=== PATIENT | female | born 1965 | race Caucasian/White ===

== ENCOUNTER 2017-01-09 18:37 | Emergency (ER) | payer BC ==
[~2017-01-09] VITALS: Ht 160 cm; Wt 81.8 kg
[2017-01-09 18:37] VITALS: Ht 160 cm; Wt 81.8 kg
--- OUTSIDE RECORDS SUMMARY | 2017-01-09 18:50 | XMS REPORT | Continuity of Care Document ---
Author Author Organization Address Unknown Phone Unavailable Allergies Active Description Code Type Severity Reaction Onset Reported/Identified Relationship to Patient Clinical Status Yes MILK MILK Drug Allergy Mild GAS, DIARRHEA 07/05/2012 Yes Penicillins Penicillins Drug Allergy Mild RASH 07/12/2012 Medications Problems Procedures Results Test Result Range CBC - 07/05/12 14:31 MEAN CELL HGB 30.3 pg 27.0-33.0 MEAN CELL HGB CONCENTRATION 34.5 g/dl 32.0-36.0 MEAN CELL VOLUME 87.8 fl 80.0-100.0 RED BLOOD CELL 4.41 m/cumm 4.00-6.00 RED CELL DISTRIBUTION WIDTH 13.5 % 11.0- 15.6 WHITE BLOOD CELL 7.2 k/cumm 5.0-10.0 HEMOGLOBIN 13.4 gm/dL 12.0-16.0 HEMATOCRIT 38.7 % 37.0-47.0 PLATELET COUNT 241 k/cumm 150-450 METABOLIC PANEL, BASIC - 07/05/12 14:31 POTASSIUM 3.7 mmol/L 3.5-5.3 EST GFR (MDRD) > 60 mL/min > 59 ANION GAP 6 mmol/L 5-15 EST CrCl (CG) > 60 mL/min > 59 GLUCOSE 87 mg/dL 70-99 CALCIUM 9.1 mg/dL 8.5-10.1 BLOOD UREA NITROGEN 23 mg/dL 7-20 CREATININE 0.9 mg/dL 0.6-1.0 SODIUM 139 mmol/L 135-148 CHLORIDE 107 mmol/L 98-110 CARBON DIOXIDE 26 mmol/L 21-32 CBC - 07/13/12 14:49 MEAN CELL HGB 30.3 pg 27.0-33.0 MEAN CELL HGB CONCENTRATION 33.8 g/dl 32.0-36.0 MEAN CELL VOLUME 89.4 fl 80.0-100.0 RED BLOOD CELL 3.79 m/cumm 4.00-6.00 RED CELL DISTRIBUTION WIDTH 13.8 % 11.0- 15.6 WHITE BLOOD CELL 13.8 k/cumm 5.0-10.0 HEMOGLOBIN 11.5 gm/dL 12.0-16.0 HEMATOCRIT 33.9 % 37.0-47.0 PLATELET COUNT 229 k/cumm 150-450 METABOLIC PANEL, BASIC - 07/13/12 14:49 POTASSIUM 3.9 mmol/L 3.5-5.3 EST GFR (MDRD) 57 mL/min > 59 ANION GAP 4 mmol/L 5-15 EST CrCl (CG) 53 mL/min > 59 GLUCOSE 112 mg/dL 70-99 CALCIUM 8.6 mg/dL 8.5-10.1 BLOOD UREA NITROGEN 22 mg/dL 7-20 CREATININE 1.1 mg/dL 0.6-1.0 SODIUM 140 mmol/L 135-148 CHLORIDE 106 mmol/L 98-110 CARBON DIOXIDE 30 mmol/L 21-32 Encounters ACCT No. Visit Date/Time Discharge Status Pt. Type Provider Facility Loc./Unit Complaint [id number] 07/12/2012 13:08:00 2011 17:40:00 DIS Outpatient Bang FLORIAN, [facility] VELMA [id number] 07/05/2012 13:33:00 2011 13:33:00 DIS Outpatient Bang FLORIAN, [facility] ANA
--- NOTE | 2017-01-09 18:52 | ERPDOC ---
Departure Disposition Decision Date: January 09, 2017 Disposition Decision Time: 20:06 Disposition: 01 DISCHARGED HOME, SELF-CARE Impression Impression Impression: Primary Impression: Hypertensive urgency Additional Impressions: Hypertension Hypertension type: essential hypertension Qualified Codes: I10 - Essential ( primary) hypertension GERD with esophagitis Severity: Severe Condition: Improved Seen By: Physician only Patient Instructions: Gastroesophageal Reflux Disease (ED), Hypertension (ED) Problems/Meds/Labs Reviewed?: Yes Medications reviewed and manag: Yes Additional Instructions: Pepcid 20 mg 2 tablets daily for control of stomach acid Lisinopril 20 mg start one tablet daily for blood pressure Follow-up with Dr. Ureña later this week Follow up care ordered?: Yes Mental Status: Alert Scripts Famotidine (Pepcid) 20 Mg Tablet 40 MG PO DAILY, #60 TAB 0 Refills Prov: ROBIN DENNISON MD 01/09/17 Lisinopril (Lisinopril) 20 Mg Tablet 20 MG PO DAILY for HYPERTENSION, #30 TAB Prov: ROBIN DENNISON MD 01/09/17 HPI - General Medical General Chief Complaint: Abdominal Pain Stated Complaint: HIGH BP,CHEST PAIN Time Seen by Provider: 18:46 Source: patient, EMS Exam Limitations: no limitations HPI - General Medical Initial Comments Over the past 4-5 days the patient has developed worsening hypertension, with blood pressures as high as 198/135. With this blood pressure the patient has had symptoms of headache, dizziness, chest pain or pressure, generalized feeling of malaise and weakness, and some occasions of shortness of breath. Patient has never had any symptoms like this before, has no history of hypertension, and she has no medical problems. Patient does admit that she's been having some symptoms of GERD recently, as well as using 2 Advil tablets multiple times daily to help with generalized bodyaches over the past week or so. Patient has been using only [id number] Advil and times as needed, no other medications or surgeries. Patient checked her blood pressure at the pharmacy, was found to be severely hypertensive, and it was recommended that she call EMS for transport to the local ER. EMS found the patient to likewise be severely hypertensive, started an IV and gave 20 mg of labetalol, and the patient's diastolic pressure went from 135-109. Patient's symptoms have improved as well. Onset: Gradual Duration: 1 week Severity: moderate, severe Associated Symptoms: chest pain, malaise, shortness of breath, weakness, DENIES : cough, diaphoresis, fever/chills, headaches, loss of appetite, nausea/vomiting , rash, seizure, syncope Allergies: Coded Allergies: Penicillins (Verified Allergy, Unknown, 01/09/17) Past History Past Medical History Pt denies signifigant PMH Surgical History Denies Surgeries Social History Smoking Status: Never smoker Does patient use chewing tobac: No Second Hand Exposure: No Substance Use Type: does not use Alcohol Intake: none Record Review Pertinent history updated: Yes Review of Systems Constitutional Constitutional: fatigue, DENIES: appetite decrease, appetite increase, chills, dizziness, fever, weakness ENMT Ears: DENIES: pain Hearing: DENIES: hearing loss, tinnitus Balance: DENIES: vertigo Mouth/Throat: DENIES: change in swallowing, change in voice, hoarsness, painful swallowing, sore throat Cardiovascular Cardiac: chest pain (mild pressure in the central chest), DENIES: dyspnea on exertion Rhythm/Rate: DENIES: irregular beat, palpitations, tachycardia Vascular: DENIES: pedal edema Pulmonary Respiratory: DENIES: cough, dyspnea, pleuritic chest pain GI Upper Abdomen: DENIES: dysphagia, heartburn/indigestion, nausea, pain, vomiting Lower Abdomen: DENIES: blood in stool, constipation, diarrhea, pain General: DENIES: burning, dysuria, frequency, pain, urgency Musculoskeletal General: DENIES: cramps, joint pain, joint swelling, pain, weakness Integumentary Skin: DENIES: rash, sores Neurological General: headache, DENIES: numbness, tingling, vertigo, weakness Psychiatric Psychiatric: DENIES: anxiety, depression, nervousness Physical Exam General General Nourishment: well nourished, well developed, appears stated age, no acute distress Distress Description She did minutes and appears nervous, and somewhat embarrassed since she is only 51 years old and has normally been healthy up to this point. General Body Habitus: well groomed Vitals and Pain First Documented Vital Signs Date Time Temp Pulse Resp B/P Pulse Ox O2 Delivery O2 Flow Rate FiO2 01/09/17 18:37 98.6 74 16 192/105 97 Room Air Weight: Kilograms: Height (feet): Height (inches): Triage Pain Scale: RN VS reviewed by Provider: Yes Normal Exams: Head: Normocephalic w/o trauma Eyes: Pupils are PERRLA w/ EOMI, No scleral icterus, irritation, or foreign bodies noted ENMT: No facial trauma, nasal exudates, pharyngeal erythema, or exudates are noted Neck: Full range of motion, without adenopathy, JVD, bruits or thyromegaly Chest/Resp: Clear all altamirano, with good airflow, and symmetry bilaterally CV: Regular rate and rhythm, without murmur or gallop, Pulses 2+ all extremities, capillary refill, <2 seconds all ext., no pedal edema noted Abdomen: Bowel sounds positive, soft, non-tender, non-distended, no hepatosplenomegaly, masses or bruits noted Lymphatic: No lymphadenopathy, or lymphedema noted Musculoskeletal: No tenderness, or deformity noted, good range of motion, all extremities Integumentary: No rashes, hives, or bruising noted, hair and nails, without abnormality Neurologic: Patient is alert, and oriented, cranial nerves, motor/sensory/ cerebellar, exams w/o gross deficits, to observation Psychiatric: Patient exhibits, appropriate attention, emotion and affect Progress Results/Orders Orders Procedure Category Date Status Time Iv Lock (Ed Only) EDM 01/09/17 Transmitted 18:46 Cbc W/Auto LAB 01/09/17 Complete Diff-Reflex Manual Cmp - Comprehensive LAB 01/09/17 Complete Metabolic Ua, Dip Wreflex LAB 01/09/17 Complete Microsc & Log Loader 18:46 EKG EKG 01/09/17 Logged Troponin I W LAB 01/09/17 Complete Hemolysis Index Labetalol (Trandate) PHA 01/09/17 Complete 19:00 Ranitidine (Zantac) PHA 01/09/17 Complete 19:00 Metoclopramide PHA 01/09/17 Complete (Reglan) 19:00 Lab Results Laboratory Tests Test 01/09/17 18:55 01/09/17 19:22 White Blood Count 10.2T/MM3 Red Blood Count 5.18M/MM3 Hemoglobin 15.0GM/DL Hematocrit 43.8% Mean Corpuscular Volume 84.6UM3 Mean Corpuscular Hemoglobin 29.0UUG Mean Corpuscular Hemoglobin Concent 34.2GM/DL RDW Standard Deviation 39.1FL Platelet Count 316T/MM3 Mean Platelet Volume 10.4UM3 Immature Granulocyte % (Auto) 0.3% Neutrophils (%) (Auto) 59.3% Lymphocytes (%) (Auto) 27.1% Monocytes (%) (Auto) 5.8% Eosinophils (%) (Auto) 6.6% Basophils (%) (Auto) 0.9% Absolute Immature Granulocyte (auto 0.03T/MM3 Absolute Neutrophils (auto) 6.1T/MM3 Absolute Lymphocytes (auto) 2.8T/MM3 Absolute Monocytes (auto) 0.6T/MM3 Absolute Eosinophils (auto) 0.7T/MM3 Absolute Basophils (auto) 0.1T/MM3 Turbidity < 20 Sodium Level 146MEQ/L Potassium Level 3.7MEQ/L Chloride Level 105MEQ/L Carbon Dioxide Level 25MEQ/L Anion Gap 16MEQ/L Blood Urea Nitrogen 14.0MG/DL Creatinine 0.8MG/DL Glomerular Filtration Rate Calc 76 BUN/Creatinine Ratio 18RATIO Glucose Level 96MG/DL Calculated Osmolality 282MOSM/KG Calcium Level 9.9MG/DL Total Bilirubin 0.60MG/DL Icterus Index < 2 Aspartate Amino Transf (AST/SGOT) 25U/L Alanine Aminotransferase (ALT/SGPT) 38U/L Alkaline Phosphatase 109U/L Troponin I < 0.012ng/ml Total Protein 7.7G/DL Albumin 4.7G/DL Globulin 3.0G/DL Albumin/Globulin Ratio 1.6RATIO Chemistry Specimen Hemolysis < 15 Urine Collection Type Cleancatch-midstream Urine Color Yellow Urine Turbidity Clear Urine pH 6.0 Urine Specific [place] 1.015 Urine Protein Negative Urine Glucose (UA) Negative Urine Ketones Negative Urine Blood Negative Urine Nitrite Negative Urine Bilirubin Negative Urine Urobilinogen 0.2EU/DL Urine Leukocyte Esterase Negative Urinalysis Comment Microscopic not ind. Medications Current ED Medications Labetalol HCl (Trandate) 20 mg O ONCE IV Last administered on 01/09/17 19:13 ; Start 01/09/17 at 19:00; Stop 01/09/17 at 19:01; Status DC Ranitidine HCl (Zantac) 300 mg O ONCE PO Last administered on 01/09/17 19:08 ; Start 01/09/17 at 19:00; Stop 01/09/17 at 19:01; Status DC Metoclopramide HCl (Reglan) 10 mg O ONCE PO Last administered on 01/09/17t 19: 08; Start 01/09/17 at 19:00; Stop 01/09/17 at 19:01; Status DC Progress Progress Patient given additional 20 mg labetalol IV as well as Zantac 300 mg and Reglan 10 mg for GERD and painful swallowing - to relief of symptoms and normalization of blood pressure CBC - n CMP - n EKG - n normal sinus rhythm without ischemia, ectopy, or infarction Troponin - n ROBIN DENNISON MD January 09, 2017 18:52
[2017-01-09] MEDS ORDERED: RANITIDINE 150 MG TABLET PO ONE (19:00)
[2017-01-09] MEDS ORDERED: LABETALOL IV ONE (19:00)
[2017-01-09] MEDS ORDERED: IBUP-1724 PO (19:04)
[2017-01-09 19:10] LABS: BASOPHILS # (AUTO) 0.1 T/MM3 (0-0.2); BASOPHILS % (AUTO) 0.9 % (0-2); EOSINOPHILS # (AUTO) 0.7 T/MM3 (0-0.5); EOSINOPHILS % (AUTO) 6.6 % (0-4); HCT - HEMATOCRIT 43.8 % (36-46); IMMATURE GRANULOCYTE # (AUTO) 0.03 T/MM3 (0.00-0.03); IMMATURE GRANULOCYTE % (AUTO) 0.3 % (0.0-0.5); LYMPHOCYTES # (AUTO) 2.8 T/MM3 (1-4.8); LYMPHOCYTES % (AUTO) 27.1 % (23-45); MEAN CORPUSCULAR HGB CONC(MCHC 34.2 GM/DL (31-37); MEAN CORPUSCULAR VOLUME 84.6 UM3 (80-100); MEAN PLATELET VOLUME 10.4 UM3 (9.4-12.4); MONOCYTES # (AUTO) 0.6 T/MM3 (0-0.8); MONOCYTES % (AUTO) 5.8 % (0-9.0); NEUTROPHILS #(AUTO)-ABSOLUTE 6.1 T/MM3 (1.8-7.7); NEUTROPHILS % (AUTO) 59.3 % (33-66); RED BLOOD COUNT 5.18 M/MM3 (4.00-5.20); WBC - WHITE BLOOD COUNT 10.2 T/MM3 (4.5-11.0)
[2017-01-09 19:15] LABS: ALBUMIN 4.7 G/DL (3.5-5.0); ALBUMIN/GLOBULIN RATIO 1.6 RATIO (1.1-2.2); ALKALINE PHOSPHATASE 109 U/L (38-126); ALT (SGPT) 38 U/L (9-52); ANION GAP 16 MEQ/L (5-15); AST (SGOT) 25 U/L (14-36); BUN/CREATININE RATIO 18 RATIO (6-26); CALCIUM 9.9 MG/DL (8.4-10.2); CHLORIDE 105 MEQ/L (98-107); CO2 - CARBON DIOXIDE 25 MEQ/L (22-30); CREATININE 0.8 MG/DL (0.7-1.2); GLOMERULAR FILTRATION RATE 76; GLUCOSE 96 MG/DL (65-110); POTASSIUM 3.7 MEQ/L (3.6-5); SODIUM 146 MEQ/L (134-144); TOTAL PROTEIN 7.7 G/DL (6.3-8.2)
--- OUTSIDE RECORDS SUMMARY | 2017-01-09 19:22 | XMS REPORT | Continuity of Care Document ---
Author Author [facility] Organization [facility] Address Unknown Phone Unavailable Allergies Active Description [...] Status Pt. Type Provider Facility Loc./Unit Complaint [id number] 07/12/2012 13:08:00 2011 17:40:00 DIS Outpatient Bang FLORIAN, [facility] VELMA [id number] 07/05/2012 13:33:00 2011 13:33:00 DIS Outpatient Bang FLORIAN, [facility] ANA
[2017-01-09 19:28] LABS: BLOOD, URINE NEGATIVE (NEGATIVE); COLOR,URINE YELLOW (YELLOW); LEUKOCYTE ESTERASE ,URINE NEGATIVE (NEGATIVE); NITRITE,URINE NEGATIVE (NEGATIVE); UROBILINOGEN,URINE 0.2 EU/DL (NORMAL)
[2017-01-09] MEDS ORDERED: FAMO-137 PO (20:08)
[2017-01-09] MEDS ORDERED: LISI-621 PO (20:08)
[2017-01-09 20:40] VITALS: BP 157/79; PULSE 69; RESP 16; TEMP 98.6; O2SAT 98
[2017-01-10] MEDS ORDERED: LISINOPRIL 20 MG TABLET PO SCH (09:00)
== END 2017-01-09 20:40 | disposition home or self-care (01) ==
LOC: ED 18:37
DX: I16.0 Hypertensive urgency (principal); I10 Essential (primary) hypertension; K21.0 Gastro-esophageal reflux disease with esophagitis
CPT/HCPCS: 80053; 81003; 84484; 85025; 93005